=== PATIENT | female | born 1995 | race Caucasian/White ===

== ENCOUNTER 2018-04-03 14:37 | Emergency (ER) | payer OTHER ==
[~2018-04-03] VITALS: Ht 152.4 cm; Wt 65.3 kg
[2018-04-03 14:43] VITALS: BP 104/56
--- NOTE | 2018-04-03 14:54 | NUR ---
BIB SELF WITH C/O STD X 2 WEEKS. PT STATES SHE WAS TREATED AT [facility] WITH NO RELIEF, PT IS HAVING VAGINAL DISCHARGE WITH SMELL AND 8/10 DULL PAIN SCALE , + ITCHNG, - BLEEDING, + NAUSEA/DIZZINESS.
--- NOTE | 2018-04-03 15:51 | NUR ---
NO STATED NEEDS AT THIS TIME.
--- NOTE | 2018-04-03 16:28 | NUR ---
DR WEN PREFORMED PELVIC EXAM, I WITNESS AT BEDSIDE. PATIENT TOLERATED WELL.
[2018-04-03] MEDS ORDERED: cefTRIAXone 250 MG in LIDOCAINE MPF 1% - 5 mL VIAL 0.9 ML IM ONE (17:05)
[2018-04-03] MEDS ORDERED: AZITHROMYCIN 250 MG TAB PO ONE (17:05)
[2018-04-03 18:01] VITALS: BP 110/55
[2018-04-05 06:19] LABS: CHLAMYDIA TRACHOMATIS AMP DNA Negative (Negative)
== END 2018-04-03 18:01 | disposition home or self-care (01) ==
LOC: MED 14:37
DX: R10.2 Pelvic and perineal pain (principal)
CPT/HCPCS: 36415; 81002; 81025; 87070; 87205; 87210; 96372; 99283; J0696; J2001; 87491

== ENCOUNTER 2018-08-14 21:31 | Emergency (ER) | payer MEDICAID, OTHER ==
[~2018-08-14] VITALS: Ht 154.9 cm; Wt 63.0 kg
[2018-08-14 21:40] VITALS: BP 113/67
--- NOTE | 2018-08-14 21:42 | NUR ---
TO LOBBY A/W BED, AMBULATORY
--- NOTE | 2018-08-14 22:01 | NUR ---
TO ER BED 2
[2018-08-14 22:19] LABS: BASOPHILS % (AUTO) 0.3 % (0.0-2.0); EOSINOPHILS # (AUTO) 0.1 K/uL (0-0.4); EOSINOPHILS % (AUTO) 0.7 % (0.0-4.0); HEMATOCRIT 37.2 % (36-48); HEMOGLOBIN 12.7 g/dL (12.0-16.0); LYMPHOCYTES # (AUTO) 2.4 K/uL (2.5-16.5); MEAN CORPUSCULAR HEMOGLOBIN 31 pg (27-31); MEAN CORPUSCULAR HGB CONC 34 g/dL (33-37); MEAN CORPUSCULAR VOLUME 91.8 fL (80-94); MONOCYTES % (AUTO) 9.9 % (1.7-9.3); NEUTROPHILS # (AUTO) 6.4 K/uL (1.8-7.7); NEUTROPHILS % (AUTO) 65.1 % (42.2-75.2); PLATELET COUNT (AUTO) 327 K/uL (140-450); RED BLOOD CELL COUNT(AUTO) 4.05 MIL/uL (4.20-5.40); RED CELL DISTRIBUTION WIDTH 13.1 % (11.6-13.7); WHITE BLOOD COUNT (AUTO) 9.8 K/uL (4.8-10.8)
[2018-08-14 22:20] LABS: APPEARANCE,URINE CLOUDY (CLEAR); BILIRUBIN,URINE NEGATIVE (NEGATIVE); BLOOD, URINE TRACE-I (NEGATIVE); COLOR,URINE YELLOW (YELLOW); LEUKOCYTE ESTERASE ,URINE TRACE (NEGATIVE); NITRITE, URINE NEGATIVE (NEGATIVE); PH,URINE 5.5 (5.0-9.0); UGLUCOSE NEGATIVE (NEGATIVE)
--- NOTE | 2018-08-14 22:27 | NUR ---
22 YO F BIB SELF AND PRESENTS TO ED C/O 10/12 SHARP SUPRAPUBIC PAIN THAT STARTED TODAY AROUND 1300. SHE STATES SHE IS 9 WEEKS . . PT REPORTS MILD NAUSEA, NO VOMITING. DENIES VAGINAL BLEEDING. DENIES URINARY BURNING, DISCOMFORT. -- PT ALERT, CALM, COOPERATIVE. ANSWERING QUESTIONS APPROPRIATELY, BEHAVIOR APPROPRIATE. -- SKIN PINK, WARM, DRY. PMH-- DENIES RX-- DENIES
[2018-08-14 22:29] LABS: ANION GAP 15.2 (8-16); CARBON DIOXIDE 23.3 mmol/L (21-32); CREATININE 0.6 mg/dL (0.6-1.3); POTASSIUM 3.5 mmol/L (3.5-5.1)
--- NOTE | 2018-08-14 23:00 | NUR ---
US AT BEDSIDE.
[2018-08-14 23:26] VITALS: BP 118/70
== END 2018-08-14 23:26 | disposition home or self-care (01) ==
LOC: MED 21:31
DX: O23.41 Unspecified infection of urinary tract in pregnancy, first trimester (principal); Z3A.08 8 weeks gestation of pregnancy
CPT/HCPCS: 36415; 76801; 80048; 81001; 81025; 84702; 85025; 86900; 86901; 87086; 99284; Q0092

== ENCOUNTER 2018-11-06 11:00 | Observation (INO) | payer MEDICAID ==
[~2018-11-06] VITALS: Ht 154.9 cm; Wt 65.8 kg
[2018-11-06 11:37] VITALS: BP 108/55
[2018-11-06 12:24] LABS: BASOPHILS % (AUTO) 0.3 % (0.0-2.0); EOSINOPHILS # (AUTO) 0.1 K/uL (0-0.4); EOSINOPHILS % (AUTO) 0.7 % (0.0-4.0); HEMATOCRIT 31.6 % (36-48); HEMOGLOBIN 10.8 g/dL (12.0-16.0); LYMPHOCYTES # (AUTO) 1.7 K/uL (2.5-16.5); LYMPHOCYTES % (AUTO) 21.3 % (20.5-51.1); MEAN CORPUSCULAR HEMOGLOBIN 32 pg (27-31); MEAN CORPUSCULAR HGB CONC 34 g/dL (33-37); MEAN CORPUSCULAR VOLUME 93.2 fL (80-94); MONOCYTES # (AUTO) 0.8 K/uL (0.8-1.0); MONOCYTES % (AUTO) 9.5 % (1.7-9.3); NEUTROPHILS # (AUTO) 5.6 K/uL (1.8-7.7); NEUTROPHILS % (AUTO) 68.2 % (42.2-75.2); PLATELET COUNT (AUTO) 310 K/uL (140-450); RED CELL DISTRIBUTION WIDTH 13.8 % (11.6-13.7); WHITE BLOOD COUNT (AUTO) 8.2 K/uL (4.8-10.8)
== END 2018-11-06 15:30 | disposition home or self-care (01) ==
LOC: EDUNIT# 11:00 → MLD 11:00 → EDBD 11:00
PROVIDERS: ADMIT Obstetrics & Gynecology; ATTEND Obstetrics & Gynecology
DX: O26.852 Spotting complicating pregnancy, second trimester (principal); O23.42 Unspecified infection of urinary tract in pregnancy, second trimester; O26.12 Low weight gain in pregnancy, second trimester; O99.012 Anemia complicating pregnancy, second trimester; D64.89 Other specified anemias; O26.892 Other specified pregnancy related conditions, second trimester; R10.2 Pelvic and perineal pain; K21.9 Gastro-esophageal reflux disease without esophagitis; Z68.27 Body mass index [BMI] 27.0-27.9, adult; Z3A.21 21 weeks gestation of pregnancy
CPT/HCPCS: 36415; 76805; 85025; 85384; 86886; 86900; 86901; G0378; Q0092; 81000

== ENCOUNTER 2019-01-21 17:09 | Observation (INO) | payer MEDICAID, OTHER ==
[~2019-01-21] VITALS: Ht 154.9 cm; Wt 71.7 kg
[2019-01-21 17:22] VITALS: BP 142/73
--- NOTE | 2019-01-21 17:31 | NUR ---
PT WILL BE TAKEN TO L@ D ROOM 210 BY WHEELCHAIR.
--- NOTE | 2019-01-21 17:33 | NUR ---
PT LEFT BY WHEELCHAIR.
[2019-01-21] MEDS ORDERED: metroNIDAZOLE 500 MG TAB PO ONE (19:40)
[2019-01-21] MEDS ORDERED: metroNIDAZOLE 500 MG TAB ONE (19:42)
[2019-01-21 20:42] LABS: APPEARANCE,URINE SL CLOUDY (CLEAR); BILIRUBIN,URINE NEGATIVE (NEGATIVE); BLOOD, URINE NEGATIVE (NEGATIVE); COLOR,URINE YELLOW (YELLOW); LEUKOCYTE ESTERASE ,URINE 3+ (NEGATIVE); NITRITE, URINE NEGATIVE (NEGATIVE); PH,URINE 6.5 (5.0-9.0); UGLUCOSE NEGATIVE (NEGATIVE)
[2019-01-21 20:54] VITALS: BP 101/56
[2019-01-21 21:02] LABS: RBC,URINE 0 /HPF (0-5)
== END 2019-01-21 21:15 | disposition home or self-care (01) ==
LOC: MED 17:09 → MFCC 18:20
PROVIDERS: ADMIT Obstetrics & Gynecology; ATTEND Obstetrics & Gynecology
DX: O23.593 Infection of other part of genital tract in pregnancy, third trimester (principal); O26.853 Spotting complicating pregnancy, third trimester; Z3A.32 32 weeks gestation of pregnancy
CPT/HCPCS: 81001; 87070; 87086; 99281; G0378

== ENCOUNTER 2020-09-06 21:26 | Emergency (ER) | payer MEDICAID, OTHER ==
[~2020-09-06] VITALS: Ht 152.4 cm; Wt 75.3 kg
[2020-09-06 21:32] VITALS: BP 107/68
[2020-09-06 23:05] LABS: BASOPHILS # (AUTO) 0.1 K/uL (0.00-0.22); BASOPHILS % (AUTO) 0.7 % (0.0-2.0); EOSINOPHILS # (AUTO) 0.1 K/uL (0-0.4); EOSINOPHILS % (AUTO) 1.5 % (0.0-4.0); HEMATOCRIT 42.1 % (36-48); HEMOGLOBIN 14.3 g/dL (12.0-16.0); LYMPHOCYTES # (AUTO) 3.4 K/uL (2.5-16.5); LYMPHOCYTES % (AUTO) 44.3 % (20.5-51.1); MEAN CORPUSCULAR HEMOGLOBIN 32 pg (27-31); MEAN CORPUSCULAR HGB CONC 34 g/dL (33-37); MEAN CORPUSCULAR VOLUME 93.1 fL (80-94); MONOCYTES # (AUTO) 0.8 K/uL (0.8-1.0); MONOCYTES % (AUTO) 10.3 % (1.7-9.3); NEUTROPHILS # (AUTO) 3.3 K/uL (1.8-7.7); NEUTROPHILS % (AUTO) 43.2 % (42.2-75.2); PLATELET COUNT (AUTO) 377 K/uL (140-450); RED BLOOD CELL COUNT(AUTO) 4.53 MIL/uL (4.20-5.40); RED CELL DISTRIBUTION WIDTH 13.5 % (11.6-13.7); WHITE BLOOD COUNT (AUTO) 7.6 K/uL (4.8-10.8)
--- NOTE | 2020-09-06 23:07 | NUR ---
pt ambulatory to bed #9
--- NOTE | 2020-09-06 23:12 | NUR ---
Ultrasound at bedside.
[2020-09-06 23:20] LABS: APPEARANCE,URINE CLEAR (CLEAR); BILIRUBIN,URINE NEGATIVE (NEGATIVE); BLOOD, URINE 1+ (NEGATIVE); COLOR,URINE YELLOW (YELLOW); LEUKOCYTE ESTERASE ,URINE NEGATIVE (NEGATIVE); NITRITE, URINE NEGATIVE (NEGATIVE); UGLUCOSE NEGATIVE (NEGATIVE)
[2020-09-06 23:27] LABS: RBC,URINE 0-5 /HPF (0-5); WBC,URINE 0-5 /HPF (0-5)
--- NOTE | 2020-09-06 23:33 | NUR ---
24 YO F BIB SELF WITH C/C OF L LOWER ABD SHARP PAIN 8/10 AND YELLOW ODOROUS VAGINAL DISCHARGE X2WKS. PT DENIES TAKING MED FOR PAIN. PAIN WORSENS IF STANDING. PT SITTING UP IN BED, BED HUBER IN LOWEST POSITION, SIDE RAILS X1. ALL NEEDS MET AT THIS TIME. DENIES HX AND MEDS NKA LAST MENST: 05/19/20
--- NOTE | 2020-09-07 00:59 | NUR ---
Dr. Olmos examining patient.
--- NOTE | 2020-09-07 01:22 | NUR ---
Female [employer] Machine Operator Helper accompanied female patient for Pelvic Exam. WET MOUNT AND CULTURE OBTAINED. HAND GIVEN TO KARLI ANGELA TECH.
[2020-09-07] MEDS ORDERED: METR500T1 PO (01:45)
[2020-09-07] MEDS ORDERED: IBUP-2213 PO (01:45)
[2020-09-07 01:53] VITALS: BP 110/68
--- NOTE | 2020-09-07 01:53 | NUR ---
Patient discharged with v/s stable. Written and verbal after care instructions given and explained. Patient alert, oriented and verbalized understanding of instructions. Ambulatory with steady gait. All questions addressed prior to discharge. ID band removed. Patient advised to follow up with PMD. Rx of IBUPROFEN AND FLAGYL given. Patient educated on indication of medication including possible reaction and side effects. Opportunity to ask questions provided and answered.
== END 2020-09-07 01:53 | disposition home or self-care (01) ==
LOC: MED 21:26
DX: N76.0 Acute vaginitis (principal); B96.89 Other specified bacterial agents as the cause of diseases classified elsewhere
CPT/HCPCS: 36415; 76817; 81001; 81025; 84702; 85025; 87070; 87086; 87210; 99284

== ENCOUNTER 2020-09-20 13:37 | Emergency (ER) | payer MEDICAID ==
[~2020-09-20] VITALS: Ht 152.4 cm; Wt 74.8 kg
[~2020-09-20 13:37] MED LIST: IBUP-2213 PO; METR500T1 PO
[2020-09-20 13:50] VITALS: BP 119/71
--- NOTE | 2020-09-20 14:05 | NUR ---
Patient ambulated to bed 02 with steady/even gait.
--- NOTE | 2020-09-20 14:07 | NUR ---
EMT at bedside for EKG.
--- NOTE | 2020-09-20 14:19 | NUR ---
25 y/o F BIB self from home with c/c sore throat, syncope x 3 episodes in the past day. patient reports chest pain x 1 day. Patient states sore throat, headache, runny nose for a week. Resports 10/12, sternal, burn/intermittent, non-radiating pain. Denies any medicatoins prior to arrival and denies any recent illness at household. Ptaient denies vomiting, nausea, diarrhea, constipation., SOB, fever/chills, dysuria. Pt placed into gown and teletypesetter monitor. Bed locked in lowest position, side rails x 1. PMH/Sx/Meds: Denies Sx: Gallbladder removal 01/22
[2020-09-20] MEDS ORDERED: NACL 0.9% 1,000 ML IV ONE (14:25)
--- NOTE | 2020-09-20 14:33 | NUR ---
Pt ambulated to restroom for urin sample.
[2020-09-20 14:50] LABS: BASOPHILS % (AUTO) 0.8 % (0.0-2.0); EOSINOPHILS # (AUTO) 0.2 K/uL (0-0.4); EOSINOPHILS % (AUTO) 2.7 % (0.0-4.0); HEMATOCRIT 36.1 % (36-48); HEMOGLOBIN 12.3 g/dL (12.0-16.0); LYMPHOCYTES # (AUTO) 2.4 K/uL (2.5-16.5); LYMPHOCYTES % (AUTO) 39.5 % (20.5-51.1); MEAN CORPUSCULAR HEMOGLOBIN 32 pg (27-31); MEAN CORPUSCULAR HGB CONC 34 g/dL (33-37); MEAN CORPUSCULAR VOLUME 94.7 fL (80-94); MONOCYTES # (AUTO) 0.7 K/uL (0.8-1.0); MONOCYTES % (AUTO) 11.5 % (1.7-9.3); NEUTROPHILS # (AUTO) 2.8 K/uL (1.8-7.7); NEUTROPHILS % (AUTO) 45.5 % (42.2-75.2); PLATELET COUNT (AUTO) 331 K/uL (140-450); RED BLOOD CELL COUNT(AUTO) 3.81 MIL/uL (4.20-5.40); RED CELL DISTRIBUTION WIDTH 13.8 % (11.6-13.7); WHITE BLOOD COUNT (AUTO) 6.1 K/uL (4.8-10.8)
[2020-09-20 15:06] LABS: ALBUMIN 3.9 g/dL (3.4-5.0); ANION GAP 7.4 (8-16); CARBON DIOXIDE 29.4 mmol/L (21-32); CREATININE 0.7 mg/dL (0.6-1.3); POTASSIUM 3.8 mmol/L (3.5-5.1); TOTAL BILIRUBIN 0.2 mg/dL (0.0-1.0)
--- NOTE | 2020-09-20 15:20 | NUR ---
IV infiltrated causing pain and swelling. Patient requesting no additional IV insertion or fluids. MIRACLE Gonzalez made aware.
[2020-09-20] MEDS ORDERED: PROM118S5 PO (15:33)
[2020-09-20] MEDS ORDERED: IBUP-2213 PO (15:33)
[2020-09-20] MEDS ORDERED: PHEN177S30 PO (15:33)
[2020-09-20] MEDS ORDERED: ACETAMINOPHEN 325 MG TAB PO ONE (15:40)
--- NOTE | 2020-09-20 15:45 | NUR ---
MIRACLE Gonzalez is reevaluating patient at bedside.
[2020-09-20 16:20] VITALS: BP 119/71
--- NOTE | 2020-09-20 16:20 | NUR ---
Patient discharged with v/s stable. Written and verbal after care instructions given and explained. Patient alert, oriented and verbalized understanding of instructions. Ambulatory with steady gait. All questions addressed prior to discharge. ID band removed. Patient advised to follow up with PMD. Rx of Ibuprofen, Phenol, Promethazine/Dextromethorphan given. Patient educated on indication of medication including possible reaction and side effects. Opportunity to ask questions provided and answered.
== END 2020-09-20 16:20 | disposition home or self-care (01) ==
LOC: MED 13:37
DX: R55 Syncope and collapse (principal); Z20.822 Contact with and (suspected) exposure to COVID-19; J06.9 Acute upper respiratory infection, unspecified; Z79.899 Other long term (current) drug therapy
CPT/HCPCS: 36415; 71045; 80053; 81002; 81025; 85025; 93005; 96360; 99285; J7030

== ENCOUNTER 2020-11-18 14:17 | Emergency (ER) | payer MEDICAID, OTHER ==
[~2020-11-18] VITALS: Ht 152.4 cm; Wt 72.6 kg
[~2020-11-18 14:17] MED LIST changes: +PHEN177S30 PO; +PROM118S5 PO
[2020-11-18 14:53] VITALS: BP 110/76
--- NOTE | 2020-11-18 14:58 | NUR ---
TENT 1.
--- NOTE | 2020-11-18 14:59 | NUR ---
C/O COUGH, SUBJECTIVE FEVER, CHILLS, N/V/D, LOSS OF TASTE/SMELL , GRIGGS X 5 DAYS. COVID TESTED LAST WEEK NEGATIVE. PMH: DENIES
[2020-11-18] MEDS ORDERED: PRED20TA5 PO (15:14)
[2020-11-18] MEDS ORDERED: IBUP-2213 PO (15:14)
--- NOTE | 2020-11-18 15:20 | NUR ---
covid pcr done.
[2020-11-18 15:25] VITALS: BP 110/76
--- NOTE | 2020-11-18 15:25 | NUR ---
Patient discharged with v/s stable. Written and verbal after care instructions given and explained. Patient alert, oriented and verbalized understanding of instructions. Ambulatory with steady gait. All questions addressed prior to discharge. ID band removed. Patient advised to follow up with PMD. Rx of ibuprofen & prednisone given. Patient educated on indication of medication including possible reaction and side effects. Opportunity to ask questions provided and answered.
--- NOTE | 2020-11-18 15:29 | NUR ---
Karen beltransarah in ED - 11/18/20 at 1529 by [email or web address] C/O COUGH, SUBJECTIVE FEVER, CHILLS, N/V/D, LOSS OF TASTE/SMELL , GRIGGS X 5 DAYS. COVID TESTED LAST WEEK NEGATIVE. PMH: JENNY
== END 2020-11-18 15:25 | disposition home or self-care (01) ==
LOC: MED 14:17
DX: R05 Cough (principal); Z20.822 Contact with and (suspected) exposure to COVID-19; R50.9 Fever, unspecified; Z79.899 Other long term (current) drug therapy
CPT/HCPCS: 99283; U0003

== ENCOUNTER 2021-04-10 19:25 | Emergency (ER) | payer OTHER ==
[~2021-04-10 19:25] MED LIST changes: +PRED20TA5 PO
--- NOTE | 2021-04-10 19:38 | NUR ---
PT CALLED IN LOBBY FOR FIRST TIME, NO ANSWER.
--- NOTE | 2021-04-10 19:48 | NUR ---
PT CALLED IN LOBBY FOR SECOND TIME, NO ANSWER.
--- NOTE | 2021-04-10 19:58 | NUR ---
PT CALLED IN LOBBY FOR THIRD TIME, NO ANSWER. MADE AWARE PT LWBS.
== END 2021-04-10 19:38 | disposition left against medical advice (07) ==
LOC: MED 19:25
DX: R10.9 Unspecified abdominal pain (principal); Z53.21 Procedure and treatment not carried out due to patient leaving prior to being seen by health care provider

== ENCOUNTER 2022-11-28 10:34 | Emergency (ER) | payer MEDICAID, OTHER ==
[~2022-11-28] VITALS: Ht 157.5 cm; Wt 79.0 kg
[2022-11-28 10:53] VITALS: BP 111/69; PULSE 73; RESP 20; TEMP 97.8; O2SAT 98
[2022-11-28] MEDS ORDERED: IBUP-2213 PO (13:15)
[2022-11-28 13:33] VITALS: BP 115/68; PULSE 75; RESP 19; TEMP 97.8; O2SAT 99
== END 2022-11-28 13:33 | disposition home or self-care (01) ==
LOC: MED 10:34
DX: S93.602A Unspecified sprain of left foot, initial encounter (principal); Z79.899 Other long term (current) drug therapy; W22.8XXA Striking against or struck by other objects, initial encounter; Y93.01 Activity, walking, marching and hiking; Y92.89 Other specified places as the place of occurrence of the external cause; Y99.8 Other external cause status
CPT/HCPCS: 73630; 99283